=== PATIENT | male | born 1985 | race African-American/Black ===

== ENCOUNTER 2017-09-28 15:29 | Emergency (ER) | payer OTHER ==
[~2017-09-28] VITALS: Ht 172.7 cm; Wt 87.4 kg
[~2017-09-28 15:29] MED LIST: LORTA5 PO
[2017-09-28 15:37] VITALS: BP 128/68; PULSE 65; RESP 18; TEMP 98.1; O2SAT 98
[2017-09-28] MEDS ORDERED: CYCL10TA PO (15:50)
[2017-09-28] MEDS ORDERED: MOBI7.5T PO (15:50)
[2017-09-28] MEDS ORDERED: DILA8TAB4 PO (15:50)
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
[2017-09-28] MEDS ORDERED: DICL75TA PO (16:36)
[2017-09-28] MEDS ORDERED: ROBA500T PO (16:36)
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
== END 2017-09-28 17:38 | disposition home or self-care (01) ==
LOC: PHEFT 15:29
DX: S13.4XXA Sprain of ligaments of cervical spine, initial encounter (principal); S20.211A Contusion of right front wall of thorax, initial encounter; M25.511 Pain in right shoulder; M54.5 Low back pain; V43.62XA Car passenger injured in collision with other type car in traffic accident, initial encounter
CPT/HCPCS: 70450; 71045; 72072; 72100; 73030; 99284